=== PATIENT | male | born 1995 | race Two or more races ===

== ENCOUNTER 2018-10-04 12:21 | Emergency (ER) | payer MEDICAID ==
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
[2018-10-04 13:20] VITALS: BP 122/75
== END 2018-10-04 13:20 ==
DX: R11.10 Vomiting, unspecified (principal); V89.2XXA Person injured in unspecified motor-vehicle accident, traffic, initial encounter; Y92.410 Unspecified street and highway as the place of occurrence of the external cause; F17.200 Nicotine dependence, unspecified, uncomplicated